=== PATIENT | male | born 1945 | race Two or more races ===

== ENCOUNTER → 2018-10-02 | Outpatient (CLI) | payer MEDICARE, OTHER | END | disposition home or self-care (01) | LOC: CFH 15:56 | PROVIDERS: ATTEND Internal Medicine | DX: M43.16 Spondylolisthesis, lumbar region (principal); M47.817 Spondylosis without myelopathy or radiculopathy, lumbosacral region; M47.814 Spondylosis without myelopathy or radiculopathy, thoracic region; E03.9 Hypothyroidism, unspecified; N20.0 Calculus of kidney; E78.1 Pure hyperglyceridemia; J45.909 Unspecified asthma, uncomplicated | CPT/HCPCS: 72072; 72100 ==

== ENCOUNTER 2018-11-08 09:31 | Outpatient (CLI) | payer MEDICARE, OTHER ==
[2018-11-08] MEDS ORDERED: EZET1TAB41 PO (10:19)
[2018-11-08] MEDS ORDERED: MONT10TA6 PO (10:19)
[2018-11-08] MEDS ORDERED: LEVO50TA5 PO (10:19)
[2018-11-08] MEDS ORDERED: LEVO75TA5 PO (10:19)
[2018-11-08] MEDS ORDERED: POTA10TA17 PO (10:19)
== END 2018-11-08 23:59 | disposition home or self-care (01) ==
LOC: STAR 09:31
PROVIDERS: ATTEND Otolaryngology
DX: Z01.818 Encounter for other preprocedural examination (principal); J32.2 Chronic ethmoidal sinusitis; J33.8 Other polyp of sinus; J34.2 Deviated nasal septum
CPT/HCPCS: 93005

== ENCOUNTER 2018-11-12 07:25 | Day surgery (SDC) | payer MEDICARE, OTHER ==
[~2018-11-12] VITALS: Ht 170.2 cm; Wt 89.5 kg
[2018-11-12 07:59] VITALS: BP 134/84
== END 2018-11-12 16:15 | disposition home or self-care (01) ==
LOC: OUT 07:25
PROVIDERS: ATTEND Otolaryngology
DX: J34.2 Deviated nasal septum (principal); J32.2 Chronic ethmoidal sinusitis; J34.89 Other specified disorders of nose and nasal sinuses; J34.3 Hypertrophy of nasal turbinates; F15.90 Other stimulant use, unspecified, uncomplicated; J33.8 Other polyp of sinus; Z88.1 Allergy status to other antibiotic agents; Z72.89 Other problems related to lifestyle
CPT/HCPCS: 30520; 31240; 31259; 31267; 87070; 87075; 87077; 87186; 87205; 88304; 88311; J0690; J2250; J2704; J2710; J3010; J3490; J7120

== ENCOUNTER → 2019-11-06 | Outpatient (CLI) | payer MEDICARE, OTHER ==
[~2019-11-06] MED LIST: EZET1TAB41 PO; LEVO50TA5 PO; LEVO75TA5 PO; MONT10TA6 PO; POTA10TA17 PO
== END | disposition home or self-care (01) ==
LOC: RAD 11:02
PROVIDERS: ATTEND Physician Assistant
DX: N20.0 Calculus of kidney (principal)
CPT/HCPCS: 74018